=== PATIENT | female | born 1975 | race Caucasian/White ===

== ENCOUNTER 2021-04-30 12:50 | Emergency (ER) | payer SELFPAY ==
--- NOTE | ~2021-04-30 | XR_ITS ---
EXAMINATION: XR CHEST CLINICAL INFORMATION: Cough. COMPARISON: None TECHNIQUE: 2 views of the chest were obtained. FINDINGS: No significant abnormality is noted involving the heart, lungs, mediastinum, bony thorax or soft tissues. XR/XR chest 2V IMPRESSION: No acute cardiopulmonary process.
[2021-04-30 13:39] VITALS: BP 150/86; PULSE 93; RESP 18; TEMP 36.8; O2SAT 99; BMI 30.1
--- NOTE | 2021-04-30 15:46 | ED.GENADULT ---
HPI - General Adult General Chief complaint: General Medical Stated complaint: upper rt abd & back pain Time Seen by Provider: 04/30/21 15:22 Source: patient Mode of arrival: ambulatory Limitations: no limitations History of Present Illness HPI narrative: 46-year-old female presents emergency depart complaining of pain to her right lower chest. She states that 2 days ago she was coughing and felt pain to her right side her back and the pain has migrated to her right-sided ribs. She denies productive cough fever nausea vomiting or diarrhea. She denies any falls or injuries. She was worried because she has history of pancreatitis but denies any drinking she immediately and drink since this started. Related Data Previous Rx's Medication Instructions Recorded cyclobenzaprine 5 mg tablet 5 mg PO BEDTIME PRN #20 tab 04/30/21 prednisone 20 mg tablet 60 mg PO DAILY 5 Days #15 tab 04/30/21 Allergies Allergy/AdvReac Type Severity Reaction Status Date / Time SEASONAL ALLERGIES Allergy Unknown RUNNY NOSE Uncoded 03/30/20 17:30 Review of Systems Review of Systems: Review of systems: General: Patient denies any fever chills recent illness or falls Musculoskeletal: Right-sided rib and back pain or body aches or other injuries HEENT: denies headache, runny nose, ear pain Respiratory: denies shortness of breath, cough Cardiovascular: no chest pain or palpitations : denies dysuria, frequency Abdomen: no nausea vomiting denies abdominal pain Extremities: no swelling, no pain Skin: no diaphoresis Yes all other systems are reviewed and are negative PMFSH Past Medical History Medical History (Updated 04/30/21 @ 15:56 by Guerrero Pro DO) Pancreatitis Social History Social History Advance Directives: No Advance Directives Information Provided: Yes Physical Exam Vital Signs: Vital Signs: Last Vital Signs Temp 98.3 F 04/30/21 13:39 Pulse 93 04/30/21 13:39 Resp 18 04/30/21 13:39 BP 150/86 H 04/30/21 13:39 Pulse Ox 99 04/30/21 13:39 Body Mass Index 30.1 General: Well-appearing well-nourished in no signs of distress HEENT: Normocephalic atraumatic Neck: No signs of JVD, no masses no tenderness or lymphadenopathy Cardiovascular: Regular rate and rhythm pain is reproducible along right lower rib CS Respiratory: Clear to auscultation bilaterally Abdomen: Soft nontender no masses Extremities: Normal pedal pulses no signs of edema Skin: Dry warm no rashes Back: No tenderness full ROM Medical Decision Making MDM Narrative Medical decision making narrative: Patient looks well has musculoskeletal right sided pain. I will give toradol tylenol and send home on flexeril Discharge Plan Discharge Clinical Impression: Back strain, Rib pain on right side Instructions: Back Pain (ED), R.I.C.E. Treatment (ED) Additional Instructions: Please call to follow up with your doctor. Prescriptions: New prednisone 20 mg tablet 60 mg PO DAILY 5 Days Qty: 15 RF: 0 cyclobenzaprine 5 mg tablet 5 mg PO BEDTIME PRN (Reason: muscle spasm) Qty: 20 RF: 0
[2021-04-30] MEDS: Ketorolac Tromethamine 15 MG/ML VIAL IM (16:39)
[2021-04-30] MEDS: Acetaminophen 325 MG TABLET 650 MG PO (16:39)
== END 2021-04-30 16:43 | disposition home or self-care (01) ==
PROVIDERS: Emergency Provider Student in an Organized Health Care Education/Training Program
DX: M54.50 Low back pain, unspecified (principal); R10.11 Right upper quadrant pain; R07.81 Pleurodynia; Z79.899 Other long term (current) drug therapy
CPT/HCPCS: 71046; 96372; 99283; 99284; J1885

== ENCOUNTER 2022-03-28 13:53 | Inpatient (IN) | payer OTHER, MEDICAID, SELFPAY ==
--- NOTE | 2022-03-28 14:23 | ECG_ITS ---
Test Reason : MED CLEARANCE Blood Pressure : / mmHG Vent. Rate : 078 BPM Atrial Rate : 078 BPM P-R Int : 112 ms QRS Dur : 066 ms QT Int : 374 ms P-R-T Axes : 047 019 030 degrees QTc Int : 426 ms Normal sinus rhythm Normal ECG When compared with ECG of 12-SEP-2018 08:31, No significant change was found Referred By: Leola Hopkins Electronically Signed By:BARBIE SKY
--- NOTE | 2022-03-28 14:28 | ED.PSYCH ---
HPI - Psych General Chief Complaint: Psychiatric Symptoms Stated Complaint: ETOH Time Seen by Provider: 03/28/22 14:09 Source: patient and EMS Mode of arrival: EMS Limitations: other (intoxicated) History of Present Illness HPI Narrative: Patient comes to the emergency room via EMS on a Section 12. Patient states that today her boyfriend was going to take her to and intake for detox. Patient states that her boyfriend did not show up, patient started drinking alcohol, making suicidal statements. Patient denies drinking anything other than alcohol, no pills/tablets. We receive a phone call from [employer]. Seems that patient was making suicidal statements earlier today, texting family member angel and making SI statements on Facebook. Patient came on a Section 12 Related Data Previous Rx's Medication Instructions Recorded cyclobenzaprine 5 mg tablet 5 mg PO BEDTIME PRN muscle spasm 04/30/21 #20 tabs prednisone 20 mg tablet 60 mg PO DAILY Asthma 5 days #15 04/30/21 tabs Allergies Allergy/AdvReac Type Severity Reaction Status Date / Time SEASONAL ALLERGIES Allergy Unknown RUNNY NOSE Uncoded 03/30/20 17:30 Review of Systems Review of Systems: Constitutional : No Weight loss, No Fever, No Chills, No Night Sweats, No Fatigue, No Malaise ENT/Mouth : No Hearing loss, No Ear Pain, No Nasal Congestion, No Sinus Pain, No Hoarseness, No sore throat, No Rhinorrhea, No Swallowing Difficulty Eyes: No Eye Pain, No Swelling, No Redness, No Foreign Body, No Discharge, No Vision Changes Cardiovascular : No Chest Pain, No SOB, No Dyspnea on Exertion, No Orthopnea, No Edema, No Palpitations Respiratory : No Cough, No Sputum, No Wheezing, No Smoke Exposure, No Dyspnea Gastrointestinal : No Nausea, No Vomiting, No Diarrhea, No Constipation, No abdominal Pain, No Hematochezia, No Melena Genitourinary : no irregular bleeding, No Dysuria, No Urinary Frequency, No Hematuria, No Urinary Incontinence, No Urgency, No Flank Pain, No Urinary Flow Changes, No Hesitancy Musculoskeletal : No joint pain, No Myalgias, No Joint Swelling Skin : No Skin Lesions, No rash Neuro : No Weakness, No Numbness, No Paresthesias, No Loss of Consciousness, No Dizziness, No Headache Psych : Complaining of anxiety, depression, SI, no HI Heme/Lymph: No Bruising, No Bleeding,No Lymphadenopathy Endocrine : No Polyuria, No Polydipsia, No Temperature Intolerance [facility] Past Medical History Medical History (Updated 03/28/22 @ 16:01 by Leola Hopkins MD) Alcohol abuse Depression Pancreatitis Physical Exam Vital Signs: Vital Signs: Last Vital Signs Temp 98.1 F 03/28/22 14:30 Pulse 91 03/28/22 14:30 Resp 19 03/28/22 14:30 BP 114/73 03/28/22 14:30 Pulse Ox 96 03/28/22 14:30 O2 Del Method 03/28/22 14:30 BMI result Body Mass Index 28.3 Const: Other: Appearance: Alert. Oriented X3. Crying intoxicated Eyes: Pupils equal, round and reactive to light. ENT: Pharynx normal. Neck: Normal inspection. Neck supple. No lymph nodes noted. No crepitus CVS: Normal heart rate and rhythm. Pulses normal. Normal S1 and S2 Respiratory: No respiratory distress. Breath sounds normal. No Wheezing. No rales Abdomen: Soft and nontender. No rigidity. No distention. Skin: Skin warm and dry. Normal skin color. Normal skin turgor. Extremities: No lower extremity edema. No Lacerations. No Rash Neuro: Oriented X 3. No motor deficit. No sensory deficit. Moving all extremities. No slurred speech. CN 2 through 12 grossly intact Psych: calm, cooperative, intoxicated, crying Course Course Course Narrative: We'll obtain labs, patient is on a Section 12. Patient's anion gap is 21, likely secondary to alcoholic/acidosis Physician observations started at 16:00 [facility] already evaluated the patient in the community. Patient is on a Section 12 MDM - Psych Lab Data Result diagrams: 03/28/22 15:06 03/28/22 15:06 Labs: Lab Results 03/28/22 03/28/22 03/28/22 Range/Units 15:06 15:06 15:06 WBC 5.9 (4.8-10.8) X10*3/uL RBC 3.35 L (4.20-5.50) X10*6/uL Hgb 11.7 L (12.0-16.0) g/dl Hct 37.1 (37.0-47.0) % MCV 110.7 H (80.0-98.0) fL MCH 34.9 H (27.0-33.0) pg MCHC 31.5 (31.0-35.0) g/dl RDW 15.8 (11.0-16.0) % Plt Count 301 (160-400) X10*3/uL MPV 9.5 (9.4-12.3) fL Immature Gran % (Auto) 0.7 H (0.0-0.4) % Neut % (Auto) 50.8 (45-73) % Lymph % (Auto) 39.2 (20-40) % [place] % (Auto) 5.6 (2-11) % Eos % (Auto) 2.7 (0-4) % Baso % (Auto) 1.0 (0-2) % Lymph # (Auto) 2.3 (1.2-4.9) X10*3/uL [place] # (Auto) 0.3 (0.1-1.2) X10*3/uL Eos # (Auto) 0.2 (0.0-0.4) X10*3/uL Baso # (Auto) 0.1 (0.0-0.2) X10*3/uL Abs Immat Gran (auto) 0.04 H (0.00-0.03) X10*3/uL Absolute Neuts (auto) 3.0 (2.0-8.3) x10*3/uL Absolute Nucleated RBC 0.000 (0.0-0.012) X10*3/uL Nucleated RBC % (auto) 0.0 (0.0-0.2) /100WBC Sodium 143 (135-145) mmol/L Potassium 4.9 (3.3-5.1) mmol/L Chloride 111 H (96-108) mmol/L Carbon Dioxide 16 L (22-29) mmol/L Anion Gap 21 H (12-20) BUN 5 L (9-16) mg/dL Creatinine 0.66 (0.5-1.4) mg/dL Estim Creat Clear Calc 110.5 Estimated GFR > 60 Random Glucose 62 (60-115) mg/dL Calcium 8.4 (8.4-10.2) mg/dL Magnesium 2.1 (1.6-2.6) mg/dL Total Bilirubin 0.2 (0.0-1.0) mg/dL Direct Bilirubin 0.2 (0.0-0.5) mg/dL AST 118 H (5-31) U/L ALT 97 H (0-31) U/L Alkaline Phosphatase 126 H (39-117) U/L Troponin I High Sens < 3.5 (<3.5-17.0) ng/L Total Protein 6.0 L (6.5-8.0) g/dL Albumin 3.5 (3.5-5.0) g/dL Salicylates < 5.0 L (15-30) mg/dL Acetaminophen < 1 (<30) mcg/mL Ethyl Alcohol 233 mg/dL COVID-19 (LOGAN) (Negative) COVID-19 Clin Com 03/28/22 Range/Units 15:06 WBC (4.8-10.8) X10*3/uL RBC (4.20-5.50) X10*6/uL Hgb (12.0-16.0) g/dl Hct (37.0-47.0) % MCV (80.0-98.0) fL MCH (27.0-33.0) pg MCHC (31.0-35.0) g/dl RDW (11.0-16.0) % Plt Count (160-400) X10*3/uL MPV (9.4-12.3) fL Immature Gran % (Auto) (0.0-0.4) % Neut % (Auto) (45-73) % Lymph % (Auto) (20-40) % [place] % (Auto) (2-11) % Eos % (Auto) (0-4) % Baso % (Auto) (0-2) % Lymph # (Auto) (1.2-4.9) X10*3/uL [place] # (Auto) (0.1-1.2) X10*3/uL Eos # (Auto) (0.0-0.4) X10*3/uL Baso # (Auto) (0.0-0.2) X10*3/uL Abs Immat Gran (auto) (0.00-0.03) X10*3/uL Absolute Neuts (auto) (2.0-8.3) x10*3/uL Absolute Nucleated RBC (0.0-0.012) X10*3/uL Nucleated RBC % (auto) (0.0-0.2) /100WBC Sodium (135-145) mmol/L Potassium (3.3-5.1) mmol/L Chloride (96-108) mmol/L Carbon Dioxide (22-29) mmol/L Anion Gap (12-20) BUN (9-16) mg/dL Creatinine (0.5-1.4) mg/dL Estim Creat Clear Calc Estimated GFR Random Glucose (60-115) mg/dL Calcium (8.4-10.2) mg/dL Magnesium (1.6-2.6) mg/dL Total Bilirubin (0.0-1.0) mg/dL Direct Bilirubin (0.0-0.5) mg/dL AST (5-31) U/L ALT (0-31) U/L Alkaline Phosphatase (39-117) U/L Troponin I High Sens (<3.5-17.0) ng/L Total Protein (6.5-8.0) g/dL Albumin (3.5-5.0) g/dL Salicylates (15-30) mg/dL Acetaminophen (<30) mcg/mL Ethyl Alcohol mg/dL COVID-19 (LOGAN) Negative (Negative) COVID-19 Clin Com See Note Discharge Plan Discharge Clinical Impression: Suicidal ideation, Alcohol intoxication Patient Disposition: Still a Patient Prescriptions: No Action prednisone 20 mg tablet 60 mg PO DAILY 5 Days Qty: 15 0RF cyclobenzaprine 5 mg tablet 5 mg PO BEDTIME PRN (Reason: muscle spasm) Qty: 20 0RF
[2022-03-28 14:30] VITALS: BP 114/73; PULSE 91; RESP 19; TEMP 36.7; O2SAT 96; BMI 28.3
--- NOTE | 2022-03-28 14:49 | MHC.CARE ---
Pt was seen by [facility] in the community and is an FRANCIE follow up upon medical clearance.
[2022-03-28 15:13] LABS: MANUAL DIFF FLAG NO
[2022-03-28 15:15] LABS: Basophils Absolute Auto 0.1 X10*3/uL (0.0-0.2); Eosinophils Absolute Auto 0.2 X10*3/uL (0.0-0.4); Eosinophils Percent Auto 2.7 % (0-4); Hematocrit 37.1 % (37.0-47.0); Hemoglobin 11.7 g/dl (12.0-16.0); Imm Gran Abs Auto 0.04 X10*3/uL (0.00-0.03); Imm Gran Pct Auto 0.7 % (0.0-0.4); Lymphocytes Absolute Auto 2.3 X10*3/uL (1.2-4.9); Lymphocytes Percent Auto 39.2 % (20-40); Mean Corpuscular HGB Conc 31.5 g/dl (31.0-35.0); Mean Corpuscular Hemoglobin 34.9 pg (27.0-33.0); Mean Platelet Volume 9.5 fL (9.4-12.3); Monocytes Absolute Auto 0.3 X10*3/uL (0.1-1.2); Monocytes Percent Auto 5.6 % (2-11); Neutrophils Percent Auto 50.8 % (45-73); Platelet Count 301 X10*3/uL (160-400); Red Blood Count 3.35 X10*6/uL (4.20-5.50); Red Cell Distribution Width 15.8 % (11.0-16.0); SCAN SMEAR FLAG 1; White Blood Count 5.9 X10*3/uL (4.8-10.8)
[2022-03-28 15:21] LABS: Mean Corpuscular Volume 110.7 fL (80.0-98.0)
[2022-03-28 15:34] LABS: Alanine Aminotransferase 97 U/L (0-31); Albumin Level 3.5 g/dL (3.5-5.0); Alkaline Phosphatase 126 U/L (39-117); Anion Gap 21 (12-20); Aspartate Amino Transferase 118 U/L (5-31); Bilirubin Direct 0.2 mg/dL (0.0-0.5); Bilirubin Total 0.2 mg/dL (0.0-1.0); Blood Urea Nitrogen 5 mg/dL (9-16); Calcium 8.4 mg/dL (8.4-10.2); Carbon Dioxide 16 mmol/L (22-29); Chloride 111 mmol/L (96-108); Creatinine Clr Calc Pharmacy 110.5; Estimated Glomerular Filt Rate > 60; Ethanol 233 mg/dL; Glucose Random 62 mg/dL (60-115); Magnesium 2.1 mg/dL (1.6-2.6); Potassium 4.9 mmol/L (3.3-5.1); Sodium 143 mmol/L (135-145)
[2022-03-28 15:35] LABS: Troponin-I High Sensitivity < 3.5 ng/L (<3.5-17.0)
[2022-03-28 15:43] LABS: COVID-19 Test Negative (Negative)
[2022-03-28 15:45] LABS: Acetaminophen LAB < 1 mcg/mL (<30); Salicylate < 5.0 mg/dL (15-30)
--- NOTE | 2022-03-28 16:14 | PC.NURSE ---
patient was received in the pod about 1600
[2022-03-28 17:07] VITALS: BP 140/83; PULSE 95; RESP 20; TEMP 36.5; O2SAT 95
[2022-03-28] MEDS: LORazepam 1 MG TABLET 2 MG PO ×2 (17:13→21:29)
[2022-03-28 19:46] LABS: Appearance Urine Turbid; Color Urine Yellow; Glucose Urine UA Negative (Negative); Leukocyte Esterase Urine Negative (Negative); Nitrite Urine Negative (Negative); Urine Blood Negative (Negative); Urine Ketones Negative (Negative); Urine Protein Trace mg/dL (Neg-Trace)
[2022-03-28 19:47] LABS: UPreg QC Valid YES; Urine Pregnancy NEGATIVE (NEGATIVE)
[2022-03-28 20:05] LABS: Amphetamine Screen Urine Not Detected (Not Detect); Barbiturates, Urine POSITIVE (Not Detect); Benzodiazepines Screen Urine POSITIVE (Not Detect); Cannabinoid Screen Urine POSITIVE (Not Detect); Cocaine Screen Urine Not Detected (Not Detect); Fentanyl, urine POSITIVE (Not Detect); Opiate Screen Urine Not Detected (Not Detect); Phencyclidine Screen Urine Not Detected (Not Detect)
[2022-03-28] MEDS: Ibuprofen 600 MG TABLET PO (20:10)
[2022-03-28 21:31] VITALS: BP 110/87; PULSE 99; RESP 18; O2SAT 99
[2022-03-28 23:07] VITALS: BP 110/87; PULSE 73; RESP 16; TEMP 36.4; O2SAT 100
--- NOTE | 2022-03-29 06:02 | PC.NURSE ---
Patient did struggle to fall sleep but fell asleep at 0045 and slept through the night, Ativan 2 mg po administered for comfort at 2128 with positive effect, patient engaged well with [facility] clinician, disposition per [facility] is section 12 inpatient bed search, patient is currently not on any medication, asymptomatic of ETOH withdrawal, behavior non concerning, VSS, will continue to monitor.
--- NOTE | 2022-03-29 06:59 | PC.NURSE ---
patient appears to remain asleep at present respirations are even and unlabored patient appears in no distress
[2022-03-29 08:53] VITALS: BP 110/79; PULSE 86; RESP 16; TEMP 36.9; O2SAT 99
[2022-03-29] MEDS: Ondansetron ODT 4 MG TAB.RAPDIS TRANSLINGU (10:24)
[2022-03-29] MEDS: Loperamide HCl 2 MG CAPSULE 4 MG PO (10:24)
[2022-03-29] MEDS: hydrOXYzine HCL 50 MG TABLET PO ×2 (10:24→19:06)
[2022-03-29 11:53] VITALS: BP 122/90; PULSE 97; RESP 17; TEMP 36.9; O2SAT 92
[2022-03-29 13:56] VITALS: BP 138/68; PULSE 98; TEMP 36.6
[2022-03-29] MEDS: hydrOXYzine HCL 25 MG TABLET PO (13:56)
--- NOTE | 2022-03-29 15:15 | PC.ADMIT ---
Pt is a 47 year old female presenting to [facility] and brought to [facility]. Pt reports stop using alcohol 10 days ago but before was a daily drinker of 6+ drinks/day. Pt states the only other substance she uses is marijuana (occasionally). Pt reports drinking hand hand pattern marker before coming in, saying it was the stuff made during COVID, mostly grain alcohol. Pt denies SI/HI/VH. Pt reports having AH, but not to hurt herself. Pt lives with boyfriend and kids and they may be ending their relationship. Pt reports she needs to be sober for 90 days so she doesn't lose her kids. Pt is looking to get her medications figured out, and to find medications that actually help her. Pt very tearful during assessment, calm and cooperative. Reports high anxiety. Pt states she is safe and can come to staff for help if needed. Provider aware of admission and orders are placed. Start treatment and monitor for safety.
[2022-03-29 15:30] LABS: COVID-19 Test Negative (Negative); IDNOW Serial# 16C4AD1C
[2022-03-29 16:13] VITALS: BP 116/74; PULSE 86; RESP 16; TEMP 37; O2SAT 98
[2022-03-29] MEDS: Folic Acid 1 MG TABLET PO (16:39)
[2022-03-29] MEDS: Thiamine HCL 100 MG TABLET PO (16:39)
[2022-03-29] MEDS: LORazepam 1 MG TABLET 2 MG PO (16:39)
[2022-03-29] MEDS: Famotidine 20 MG TABLET PO (17:43)
[2022-03-29] MEDS: Acetaminophen 325 MG TABLET 650 MG PO (17:43)
[2022-03-29] MEDS: Omeprazole 20 MG CAPSULE.DR PO (17:43)
[2022-03-29 18:00] VITALS: BP 98/67; PULSE 84; TEMP 36.3
[2022-03-29] MEDS: traZODone HCL 50 MG TABLET PO (20:58)
--- NOTE | 2022-03-29 22:32 | PC.NURSE ---
Pt submitted a Three Day Notice on Friday03/29/2022 up on Friday04/03/2022.
[2022-03-30] MEDS: traZODone HCL 50 MG TABLET PO ×3 (03:10→23:28)
[2022-03-30] MEDS: Omeprazole 20 MG CAPSULE.DR PO (06:12)
[2022-03-30 08:15] VITALS: BP 116/64; PULSE 82; TEMP 36.4
[2022-03-30] MEDS: Famotidine 20 MG TABLET PO (08:24)
[2022-03-30] MEDS: Thiamine HCL 100 MG TABLET PO (08:24)
[2022-03-30] MEDS: LORazepam 1 MG TABLET PO ×2 (08:24→14:58)
[2022-03-30] MEDS: Folic Acid 1 MG TABLET PO (08:24)
[2022-03-30 08:36] LABS: Estimated Average Glucose 91 mg/dL; Hemoglobin A1c % 4.8 %
[2022-03-30 08:46] LABS: Alanine Aminotransferase 78 U/L (0-31); Albumin Level 3.6 g/dL (3.5-5.0); Alkaline Phosphatase 114 U/L (39-117); Anion Gap 16 (12-20); Aspartate Amino Transferase 74 U/L (5-31); Bilirubin Total 0.5 mg/dL (0.0-1.0); Blood Urea Nitrogen 8 mg/dL (9-16); Calcium 8.7 mg/dL (8.4-10.2); Carbon Dioxide 22 mmol/L (22-29); Chloride 106 mmol/L (96-108); Cholesterol 211 mg/dL; Creatinine Clr Calc Pharmacy 101.2; Estimated Glomerular Filt Rate > 60; Glucose Fasting 118 mg/dL (60-99); HDL Cholesterol 56 mg/dL; LDL Cholesterol Calculated 132 mg/dl; Potassium 4.9 mmol/L (3.3-5.1); Sodium 139 mmol/L (135-145); Total Protein 6.4 g/dL (6.5-8.0); Triglycerides 115 mg/dL
[2022-03-30 08:57] LABS: Thyroid Stimulating Hormone 2.43 uIU/mL (0.32-4.0)
[2022-03-30] MEDS: hydrOXYzine HCL 50 MG TABLET PO (10:13)
[2022-03-30] MEDS: Acetaminophen 325 MG TABLET 650 MG PO ×2 (10:13→21:30)
[2022-03-30 10:36] LABS: Folate 11.7 ng/mL (> or = 4.0); Vitamin B12 487 pg/mL (200-900)
--- NOTE | 2022-03-30 11:40 | HO.PSYADMNOT ---
HPI Date of Service: 03/30/22 Chief Complaint: SI Sources of Information: patient interviewed, chart reviewed and crisis/core team assessment reviewed HPI Subjective Notes: Conditional Voluntary and 3 Day Narrative: 47 year old , partnered for 9 years female. Lives with her fiance and son. Unemployed. Patient was brought to the hospital due to ethyl alcohol intoxication and posting suicidal statements on her social media. Patient says she has been struggling with alcohol use, she was drinking at least 10 shots a day. 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 She had a BAL 223 on presentation to the ED. She reports she has been drinking excessively after the pandemic. 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 She takes care of a 22 year old quadriplegic son which is overwhelming. She also says her boyfriend drinks. 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 She was recently at rehab and left because she says it wasn't helpful. She says she has been looking for a program to help with her Alcohol use but insurance and lack of beds were barriers. She reports feeling depressed, anxious, lost weight says about 40 lbs I lost my desire to eat. She has not been sleeping. Worthlessness and helplessness. Although she denies SI or making any statements on social media about wanting to kill herself, she says I can understand why people want to because of depression. Denies active SI. She has a court hearing coming up Friday for an alleged assault charge her partner filed against her. Past Psychiatric History: Depression. Was treated in the past with Prozac and Abilify. Prozac at high doses caused side effects and she stopped it. Denies inpatient treatment. Denies suicide attempts. Medical Evaluation Reviewed: Yes [facility] Medical History (Updated 03/30/22 @ 12:25 by Sagar Mas MD) Alcohol abuse Depression Pancreatitis Family History: Patient reports that her father was an alcoholic Social History: Born in [place] and raised in [place]. Graduated HS. 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 Has 3 children. . Now partnered for 9 years. Substance History: Alcohol. Denies other although UTOX was positive or fentanyl and barbiturates. Diagnostics Vital Signs (24Hr): Vital Signs - 24 hr 03/29/22 11:53 03/29/22 13:56 03/29/22 16:13 Temperature 98.5 F 97.9 F 98.6 F Pulse Rate 97 98 86 Respiratory Rate 17 16 Blood Pressure 122/90 H 138/68 116/74 Pulse Oximetry 92 98 Oxygen Delivery Method Room Air Room Air 03/29/22 18:00 03/30/22 08:15 Temperature 97.4 F 97.5 F Pulse Rate 84 82 Respiratory Rate Blood Pressure 98/67 116/64 Pulse Oximetry Oxygen Delivery Method BMI result Body Mass Index 28.3 Labs Results: 03/28/22 15:06 03/30/22 07:43 Labs: Laboratory Results - last 48 hr 03/28/22 03/28/22 03/28/22 15:06 15:06 15:06 WBC 5.9 RBC 3.35 L Hgb 11.7 L Hct 37.1 MCV 110.7 H MCH 34.9 H MCHC 31.5 RDW 15.8 Plt Count 301 MPV 9.5 Immature Gran % (Auto) 0.7 H Neut % (Auto) 50.8 Lymph % (Auto) 39.2 [place] % (Auto) 5.6 Eos % (Auto) 2.7 Baso % (Auto) 1.0 Lymph # (Auto) 2.3 [place] # (Auto) 0.3 Eos # (Auto) 0.2 Baso # (Auto) 0.1 Abs Immat Gran (auto) 0.04 H Absolute Neuts (auto) 3.0 Absolute Nucleated RBC 0.000 Nucleated RBC % (auto) 0.0 Sodium 143 Potassium 4.9 Chloride 111 H Carbon Dioxide 16 L Anion Gap 21 H BUN 5 L Creatinine 0.66 Estim Creat Clear Calc 110.5 Estimated GFR > 60 Random Glucose 62 Fasting Glucose Estimat Average Glucose Hemoglobin A1c % Calcium 8.4 Magnesium 2.1 Total Bilirubin 0.2 Direct Bilirubin 0.2 AST 118 H ALT 97 H Alkaline Phosphatase 126 H Troponin I High Sens < 3.5 Total Protein 6.0 L Albumin 3.5 Triglycerides Cholesterol LDL Cholesterol, Calc HDL Cholesterol Vitamin B12 Folate TSH Urine Color Urine Appearance Urine pH Ur Specific [place] Urine Protein Urine Glucose (UA) Urine Ketones Urine Blood Urine Nitrite Ur Leukocyte Esterase Urine Test Salicylates < 5.0 L Urine Opiates Screen Urine Fentanyl Screen Acetaminophen < 1 Ur Barbiturates Screen Ur Phencyclidine Scrn Ur Amphetamines Screen U Benzodiazepines Scrn Urine Cocaine Screen U Marijuana (THC) Screen Ethyl Alcohol 233 COVID-19 (LOGAN) COVID-19 enosiX Com 03/28/22 03/28/22 03/28/22 15:06 19:36 19:37 WBC RBC Hgb Hct MCV MCH MCHC RDW Plt Count MPV Immature Gran % (Auto) Neut % (Auto) Lymph % (Auto) [place] % (Auto) Eos % (Auto) Baso % (Auto) Lymph # (Auto) [place] # (Auto) Eos # (Auto) Baso # (Auto) Abs Immat Gran (auto) Absolute Neuts (auto) Absolute Nucleated RBC Nucleated RBC % (auto) Sodium Potassium Chloride Carbon Dioxide Anion Gap BUN Creatinine Estim Creat Clear Calc Estimated GFR Random Glucose Fasting Glucose Estimat Average Glucose Hemoglobin A1c % Calcium Magnesium Total Bilirubin Direct Bilirubin AST ALT Alkaline Phosphatase Troponin I High Sens Total Protein Albumin Triglycerides Cholesterol LDL Cholesterol, Calc HDL Cholesterol Vitamin B12 Folate TSH Urine Color Yellow Urine Appearance Turbid Urine pH 5.0 Ur Specific [place] 1.020 Urine Protein Trace Urine Glucose (UA) Negative Urine Ketones Negative Urine Blood Negative Urine Nitrite Negative Ur Leukocyte Esterase Negative Urine Test Salicylates Urine Opiates Screen Not Detected Urine Fentanyl Screen POSITIVE H Acetaminophen Ur Barbiturates Screen POSITIVE H Ur Phencyclidine Scrn Not Detected Ur Amphetamines Screen Not Detected U Benzodiazepines Scrn POSITIVE H Urine Cocaine Screen Not Detected U Marijuana (THC) Screen POSITIVE H Ethyl Alcohol COVID-19 (LOGAN) Negative COVID-19 enosiX Com See Note 03/28/22 03/29/22 03/30/22 19:37 15:05 07:43 WBC RBC Hgb Hct MCV MCH MCHC RDW Plt Count MPV Immature Gran % (Auto) Neut % (Auto) Lymph % (Auto) [place] % (Auto) Eos % (Auto) Baso % (Auto) Lymph # (Auto) [place] # (Auto) Eos # (Auto) Baso # (Auto) Abs Immat Gran (auto) Absolute Neuts (auto) Absolute Nucleated RBC Nucleated RBC % (auto) Sodium 139 Potassium 4.9 Chloride 106 Carbon Dioxide 22 Anion Gap 16 BUN 8 L D Creatinine 0.72 Estim Creat Clear Calc 101.2 Estimated GFR > 60 Random Glucose Fasting Glucose 118 H Estimat Average Glucose Hemoglobin A1c % Calcium 8.7 Magnesium Total Bilirubin 0.5 Direct Bilirubin AST 74 H ALT 78 H Alkaline Phosphatase 114 Troponin I High Sens Total Protein 6.4 L Albumin 3.6 Triglycerides 115 Cholesterol 211 LDL Cholesterol, Calc 132 HDL Cholesterol 56 Vitamin B12 Folate TSH 2.43 Urine Color Urine Appearance Urine pH Ur Specific [place] Urine Protein Urine Glucose (UA) Urine Ketones Urine Blood Urine Nitrite Ur Leukocyte Esterase Urine Test NEGATIVE Salicylates Urine Opiates Screen Urine Fentanyl Screen Acetaminophen Ur Barbiturates Screen Ur Phencyclidine Scrn Ur Amphetamines Screen U Benzodiazepines Scrn Urine Cocaine Screen U Marijuana (THC) Screen Ethyl Alcohol COVID-19 (LOGAN) Negative COVID-19 Clin Com See Note 03/30/22 03/30/22 07:43 07:43 WBC RBC Hgb Hct MCV MCH MCHC RDW Plt Count MPV Immature Gran % (Auto) Neut % (Auto) Lymph % (Auto) [place] % (Auto) Eos % (Auto) Baso % (Auto) Lymph # (Auto) [place] # (Auto) Eos # (Auto) Baso # (Auto) Abs Immat Gran (auto) Absolute Neuts (auto) Absolute Nucleated RBC Nucleated RBC % (auto) Sodium Potassium Chloride Carbon Dioxide Anion Gap BUN Creatinine Estim Creat Clear Calc Estimated GFR Random Glucose Fasting Glucose Estimat Average Glucose 91 Hemoglobin A1c % 4.8 Calcium Magnesium Total Bilirubin Direct Bilirubin AST ALT Alkaline Phosphatase Troponin I High Sens Total Protein Albumin Triglycerides Cholesterol LDL Cholesterol, Calc HDL Cholesterol Vitamin B12 487 Folate 11.7 TSH Urine Color Urine Appearance Urine pH Ur Specific [place] Urine Protein Urine Glucose (UA) Urine Ketones Urine Blood Urine Nitrite Ur Leukocyte Esterase Urine Test Salicylates Urine Opiates Screen Urine Fentanyl Screen Acetaminophen Ur Barbiturates Screen Ur Phencyclidine Scrn Ur Amphetamines Screen U Benzodiazepines Scrn Urine Cocaine Screen U Marijuana (THC) Screen Ethyl Alcohol COVID-19 ([facility]) COVID-19 Clin Com Meds/Allergies Meds Home Medications Medication Instructions Recorded Confirmed Type No Known Home Meds 03/28/22 03/28/22 History Allergies Allergies Allergy/AdvReac Type Severity Reaction Status Date / Time SEASONAL ALLERGIES Allergy Unknown RUNNY NOSE Uncoded 03/30/20 17:30 Mental Status Exam Mental Status Exam Patient Appearance: Appropriate Patient Orientation: Person, Place, Time and Situation Level of Consciousness: Awake Patient Behavior: Appropriate, Anxious, Good Eye Contact and Crying Mood Description: Depressed, Anxious, Labile and Sad Affect Description: Depressed and Labile Patient Cognition Impaired: No Ability to Follow Directions: Excellent Speech Pattern: Clear Memory Description: Intact Hallucinations: None Delusions: Not Present Thought Process: Intact and Goal Oriented Thought Content: positive for Goal Oriented Depressive Symptoms: Increased Anxiety, Insomnia, Difficulty Sleeping, Changes in Appetite, Significant Weight Loss, Feelings of Worthlessness, Feelings of Guilt and Thoughts of /Suicide Judgement: Fair Assessment & Plan Assessment & Plan (1) Alcohol intoxication: Status: Acute Code(s): F10.929 - Alcohol use, unspecified with intoxication, unspecified (2) Suicidal ideation: Status: Acute Code(s): R45.851 - Suicidal ideations (3) Depression, major, severe recurrence: Status: Acute Code(s): F33.2 - Major depressive disorder, recurrent severe without psychotic features (4) Alcohol dependence: Status: Acute Code(s): F10.20 - Alcohol dependence, uncomplicated Plan - Admit to [facility]. Signed a 3 day after signing a CV - CIWA and symptomatic PRN medications for withdrawals. - Start Naltrexone 50 mg HS. - Start Remeron 15 mg for depression. - Milieu therapy - Collaterals. - After care planning. Patient educated on: diagnosis, medication risk/benefits and substance abuse Reason for continued inpatient stay Substantial Risk for: harm to self, inability to function and rapid decompensation
[2022-03-30 16:45] VITALS: BP 106/59; PULSE 96; TEMP 36.9; O2SAT 99
[2022-03-30] MEDS: Mirtazapine 15 MG TABLET PO (20:28)
[2022-03-30] MEDS: Naltrexone HCl 50 MG TABLET PO (20:28)
[2022-03-30] MEDS: LORazepam 1 MG TABLET 2 MG PO (20:29)
[2022-03-31] MEDS: hydrOXYzine HCL 50 MG TABLET PO ×3 (03:12→17:21)
[2022-03-31 06:00] VITALS: BP 135/78; PULSE 81; RESP 18; TEMP 36.6; O2SAT 100
[2022-03-31] MEDS: Omeprazole 20 MG CAPSULE.DR PO (06:32)
[2022-03-31] MEDS: Folic Acid 1 MG TABLET PO (08:06)
[2022-03-31] MEDS: Thiamine HCL 100 MG TABLET PO (08:06)
[2022-03-31] MEDS: Famotidine 20 MG TABLET PO (08:06)
[2022-03-31] MEDS: LORazepam 1 MG TABLET PO ×3 (08:12→21:11)
[2022-03-31] MEDS: Acetaminophen 325 MG TABLET 650 MG PO (09:23)
[2022-03-31 12:06] VITALS: BP 152/99; PULSE 111
[2022-03-31] MEDS: cloNIDine HCL 0.1 MG TABLET PO ×2 (12:08→19:53)
--- NOTE | 2022-03-31 13:17 | HO.PSYCHPN ---
Subjective Subjective Date of Service: 03/31/22 Reason For Visit: SI Subjective Notes: 3 Day Interim History: patient was seen and discussed with the team. She is reporting severe anxiety. She says that is her main worry. She is seen in front of the telephone in the hallway and crying. When asked what is happening she reports I have relationship problems . She denies withdrawals. She says that hydroxyzine is only partially helpful for her anxiety. She had poor sleep last night because her roommate was restless. She agreed to a trial of clonidine as needed for anxiety Not responsive to hydroxyzine. Patient educated on the effects of antidepressants, specifically Remeron. Mental Status Exam Mental Status Exam Narrative: Patient Appearance: Appropriate Patient Orientation: Person, Place, Time and Situation Level of Consciousness: Awake Patient Behavior: Appropriate, Anxious, Good Eye Contact and Crying Mood Description: Depressed, Anxious, Labile and Sad Affect Description: Depressed and Labile Patient Cognition Impaired: No Ability to Follow Directions: Excellent Speech Pattern: Clear Memory Description: Intact Hallucinations: None Delusions: Not Present Thought Process: Intact and Goal Oriented Thought Content: positive for Goal Oriented Depressive Symptoms: Increased Anxiety, Insomnia, Difficulty Sleeping, Changes in Appetite, Significant Weight Loss, Feelings of Worthlessness, Feelings of Guilt and Thoughts of /Suicide Judgement: Fair Diagnostics Vital Signs (24Hr): Vital Signs - 24 hr 03/31/22 06:00 03/31/22 12:06 03/31/22 15:55 Temperature 97.8 F 97.9 F Pulse Rate 81 111 H 80 Respiratory Rate 18 Blood Pressure 135/78 152/99 H 128/75 Pulse Oximetry 100 99 Oxygen Delivery Method Room Air Room Air BMI result Body Mass Index 28.3 Labs Results: 03/28/22 15:06 03/30/22 07:43 Labs: Laboratory Results - last 48 hr 03/30/22 03/30/22 03/30/22 07:43 07:43 07:43 Sodium 139 Potassium 4.9 Chloride 106 Carbon Dioxide 22 Anion Gap 16 BUN 8 L D Creatinine 0.72 Estim Creat Clear Calc 101.2 Estimated GFR > 60 Fasting Glucose 118 H Estimat Average Glucose 91 Hemoglobin A1c % 4.8 Calcium 8.7 Total Bilirubin 0.5 AST 74 H ALT 78 H Alkaline Phosphatase 114 Total Protein 6.4 L Albumin 3.6 Triglycerides 115 Cholesterol 211 LDL Cholesterol, Calc 132 HDL Cholesterol 56 Vitamin B12 487 Folate 11.7 TSH 2.43 Medications Medications Current Medications Acetaminophen (Acetaminophen 325 Mg Tablet) 650 mg PO Q6H PRN PRN Reason: Headache/Pain Mild Scale (1-3) Last Admin: 03/31/22 09:23 Dose: 650 mg Al Hydroxide/Mg Hydroxide (Magnesium Hydrox/Alum Hydrox 30 Ml Oral.Susp) 30 ml PO Q6H PRN PRN Reason: Heartburn/Nausea Clonidine HCl (Clonidine Hcl 0.1 Mg Tablet) 0.1 mg PO TID PRN; Protocol PRN Reason: anxiety not responding to Vistaril Last Admin: 03/31/22 12:08 Dose: 0.1 mg Famotidine (Famotidine 20 Mg Tablet) 20 mg PO DAILY [facility] Last Admin: 03/31/22 08:06 Dose: 20 mg Folic Acid (Folic Acid 1 Mg Tablet) 1 mg PO DAILY [facility] Last Admin: 03/31/22 08:06 Dose: 1 mg Hydroxyzine HCl (Hydroxyzine Hcl 50 Mg Tablet) 50 mg PO Q6H PRN PRN Reason: Anxiety Last Admin: 03/31/22 17:21 Dose: 50 mg Lorazepam (Lorazepam 1 Mg Tablet) 1 mg PO Q4H PRN PRN Reason: ciwa 7-12 Last Admin: 03/31/22 14:22 Dose: 1 mg Lorazepam (Lorazepam 1 Mg Tablet) 2 mg PO Q4H PRN PRN Reason: ciwa 13-17 Last Admin: 03/30/22 20:29 Dose: 2 mg Magnesium Hydroxide (Milk Of Magnesia 30 Ml Oral.Susp) 30 ml PO DAILY PRN PRN Reason: Constipation Mirtazapine (Mirtazapine 15 Mg Tablet) 15 mg PO BEDTIME [facility] Last Admin: 03/30/22 20:28 Dose: 15 mg Naltrexone HCl (Naltrexone Hcl 50 Mg Tablet) 50 mg PO BEDTIME [facility] Last Admin: 03/30/22 20:28 Dose: 50 mg Omeprazole (Omeprazole 20 Mg Capsule.Dr) 20 mg PO DAILY@0630 [facility] Last Admin: 03/31/22 06:32 Dose: 20 mg Ondansetron HCl (Ondansetron Odt 8 Mg Tab.Rapdis) 8 mg TRANSLINGU Q8H PRN PRN Reason: Nausea Thiamine HCl (Thiamine Hcl 100 Mg Tablet) 100 mg PO DAILY [facility] Last Admin: 03/31/22 08:06 Dose: 100 mg Trazodone HCl (Trazodone Hcl 50 Mg Tablet) 50 mg PO BEDTIME PRN PRN Reason: Insomnia Last Admin: 03/30/22 23:28 Dose: 50 mg Allergies Allergies Allergy/AdvReac Type Severity Reaction Status Date / Time SEASONAL ALLERGIES Allergy Unknown RUNNY NOSE Uncoded 03/30/20 17:30 Assessment & Plan Assessment & Plan (1) Alcohol intoxication: Status: Acute Code(s): F10.929 - Alcohol use, unspecified with intoxication, unspecified (2) Suicidal ideation: Status: Acute Code(s): R45.851 - Suicidal ideations (3) Depression, major, severe recurrence: Status: Acute Code(s): F33.2 - Major depressive disorder, recurrent severe without psychotic features (4) Alcohol dependence: Status: Acute Code(s): F10.20 - Alcohol dependence, uncomplicated Plan - Admit to M5. Signed a 3 day after signing a CV - CIWA and symptomatic PRN medications for withdrawals. - Start Naltrexone 50 mg HS. - Start Remeron 15 mg for depression. - Milieu therapy - Collaterals. - After care planning. I spent minutes with the patient and/or on the patient floor today, greater than?50% of which was spent counseling/coordinating care. Reason for contiued inpatient stay Substantial Risk for: harm to self, inability to function and rapid decompensation
[2022-03-31 15:55] VITALS: BP 128/75; PULSE 80; TEMP 36.6; O2SAT 99
[2022-03-31] MEDS: traZODone HCL 50 MG TABLET PO (19:53)
[2022-03-31] MEDS: Naltrexone HCl 50 MG TABLET PO (19:53)
[2022-03-31] MEDS: Mirtazapine 15 MG TABLET PO (19:53)
[2022-04-01] MEDS: traZODone HCL 50 MG TABLET PO ×2 (01:02→20:31)
[2022-04-01] MEDS: hydrOXYzine HCL 50 MG TABLET PO ×4 (01:05→20:41)
[2022-04-01 06:00] VITALS: BP 132/82; PULSE 86; RESP 18; TEMP 36.4; O2SAT 99
[2022-04-01] MEDS: Acetaminophen 325 MG TABLET 650 MG PO ×2 (08:09→14:07)
[2022-04-01] MEDS: Thiamine HCL 100 MG TABLET PO (08:10)
[2022-04-01] MEDS: Famotidine 20 MG TABLET PO ×3 (08:10→20:32)
[2022-04-01] MEDS: LORazepam 1 MG TABLET PO ×3 (08:10→20:42)
[2022-04-01] MEDS: Folic Acid 1 MG TABLET PO (08:10)
[2022-04-01] MEDS: cloNIDine HCL 0.1 MG TABLET PO (10:35)
[2022-04-01] MEDS: Gabapentin 300 MG CAPSULE PO ×3 (11:34→20:32)
--- NOTE | 2022-04-01 16:45 | P.PNPSI_ITS ---
Subjective Subjective Date of Service: 04/01/22 Reason For Visit: SI Interim History: Patient reports she is feeling much better. She denies any SI at all and says that she has kids would never hurt herself. She feels clonidine is also helpful and has lowered anxiety. Patient is optimistic about staying sober and says her boyfriend has cleaned the house out from all alcohol. Regulatory Affairs Coordinator discussed vulnerability to relapse however patient minimize this and felt she would be okay. Patient has signed a 3 day notice and says she is feeling ready to go home. Patient appreciated gabapentin being started and understood it was to be soon discontinued. Mental Status Exam Mental Status Exam Narrative: Patient Appearance: Appropriate Patient Orientation: Person, Place, Time and Situation Level of Consciousness: Awake Patient Behavior: calm, cooperative, friendly Mood Description: better Affect Description: Depressed and Labile Patient Cognition Impaired: No Ability to Follow Directions: Excellent Speech Pattern: Clear Memory Description: Intact Hallucinations: None Delusions: Not Present Thought Process: Intact and Goal Oriented Thought Content: discharge, staying sober; denies SI or HI Depressive Symptoms: resolved Judgement: Fair Diagnostics Vital Signs (24Hr): Vital Signs - 24 hr 04/01/22 06:00 Temperature 97.6 F Pulse Rate 86 Respiratory Rate 18 Blood Pressure 132/82 Pulse Oximetry 99 BMI result Body Mass Index 28.3 Labs Results: 03/28/22 15:06 03/30/22 07:43 Medications Medications Current Medications Acetaminophen (Acetaminophen 325 Mg Tablet) 650 mg PO Q6H PRN PRN Reason: Headache/Pain Mild Scale (1-3) Last Admin: 04/01/22 14:07 Dose: 650 mg Al Hydroxide/Mg Hydroxide (Magnesium Hydrox/Alum Hydrox 30 Ml Oral.Susp) 30 ml PO Q6H PRN PRN Reason: Heartburn/Nausea Clonidine HCl (Clonidine Hcl 0.1 Mg Tablet) 0.1 mg PO TID PRN; Protocol PRN Reason: anxiety not responding to Vistaril Last Admin: 04/01/22 10:35 Dose: 0.1 mg Famotidine (Famotidine 20 Mg Tablet) 20 mg PO BID [facility] Folic Acid (Folic Acid 1 Mg Tablet) 1 mg PO DAILY [facility] Last Admin: 04/01/22 08:10 Dose: 1 mg Gabapentin (Gabapentin 300 Mg Capsule) 300 mg PO TID [facility] Last Admin: 04/01/22 14:08 Dose: 300 mg Hydroxyzine HCl (Hydroxyzine Hcl 50 Mg Tablet) 50 mg PO Q6H PRN PRN Reason: Anxiety Last Admin: 04/01/22 14:08 Dose: 50 mg Lorazepam (Lorazepam 1 Mg Tablet) 1 mg PO Q4H PRN PRN Reason: ciwa 7-12 Last Admin: 04/01/22 16:31 Dose: 1 mg Lorazepam (Lorazepam 1 Mg Tablet) 2 mg PO Q4H PRN PRN Reason: ciwa 13-17 Last Admin: 03/30/22 20:29 Dose: 2 mg Magnesium Hydroxide (Milk Of Magnesia 30 Ml Oral.Susp) 30 ml PO DAILY PRN PRN Reason: Constipation Mirtazapine (Mirtazapine 15 Mg Tablet) 15 mg PO BEDTIME [facility] Last Admin: 03/31/22 19:53 Dose: 15 mg Naltrexone HCl (Naltrexone Hcl 50 Mg Tablet) 50 mg PO BEDTIME [facility] Last Admin: 03/31/22 19:53 Dose: 50 mg Omeprazole (Omeprazole 20 Mg Capsule.Dr) 20 mg PO DAILY@0630 [facility] Last Admin: 04/01/22 06:58 Dose: Not Given Ondansetron HCl (Ondansetron Odt 8 Mg Tab.Rapdis) 8 mg TRANSLINGU Q8H PRN PRN Reason: Nausea Thiamine HCl (Thiamine Hcl 100 Mg Tablet) 100 mg PO DAILY [facility] Last Admin: 04/01/22 08:10 Dose: 100 mg Trazodone HCl (Trazodone Hcl 50 Mg Tablet) 50 mg PO BEDTIME PRN PRN Reason: Insomnia Last Admin: 04/01/22 01:02 Dose: 50 mg Allergies Allergies Allergy/AdvReac Type Severity Reaction Status Date / Time SEASONAL ALLERGIES Allergy Unknown RUNNY NOSE Uncoded 03/30/20 17:30 Assessment & Plan Assessment & Plan (1) Alcohol intoxication: Status: Resolved Code(s): F10.929 - Alcohol use, unspecified with intoxication, unspecified (2) Suicidal ideation: Status: Resolved Code(s): R45.851 - Suicidal ideations (3) Depression, major, severe recurrence: Status: Resolved Code(s): F33.2 - Major depressive disorder, recurrent severe without psychotic features (4) Alcohol dependence: Status: Resolved Code(s): F10.20 - Alcohol dependence, uncomplicated Plan HPI: 47 year old , partnered for 9 years female. Lives with her fiance and son. Unemployed. Patient was brought to the hospital due to ethyl alcohol intoxication and posting suicidal statements on her social media. Patient says she has been struggling with alcohol use, she was drinking at least 10 shots a day. 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 She had a BAL 223 on presentation to the ED. She reports she has been drinking excessively after the pandemic. 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 She takes care of a 22 year old quadriplegic son which is overwhelming. She also says her boyfriend drinks. 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 She was recently at rehab and left because she says it wasn't helpful. She says she has been looking for a program to help with her Alcohol use but insurance and lack of beds were barriers.? She reports feeling depressed, anxious, lost weight says about 40 lbs I lost my desire to eat. She has not been sleeping. Worthlessness and helplessness. Although she denies SI or making any statements on social media about wanting to kill herself, she says I can understand why people want to because of depression. ? Denies active SI. She has a court hearing coming up Friday for an alleged assault charge her partner filed against her. Hospital course Patient was admitted; she complained of depression and anxiety however want to discharge and signed a 3 day notice immediately. Patient was started on CIWA. She was also started on naltrexone for helping curb alcohol cravings. Patient was started on mirtazapine as well for depression. Although patient still had some emotional lability, Today she reports that depression had cleared up and she continues to deny any SI at all. She reiterated her above statement saying that she can see why people thought perhaps she was suicidal, however remains adamant this was not the case saying she has kid that whenever hurt herself. Patient reports that her anxiety was under better control with clonidine and felt Remeron was helpful as well. Patient was calm, no longer emotional, fri endly and cooperative. She wanted discharge and her 3 day notice was coming due. Regulatory Affairs Coordinator discussed how she still had withdrawal symptoms however patient said she hardly felt them and still wanted discharge. Patient did not rise to the level of involuntary commitment and was not in imminent risk for harm to self or others. -scenario writer started her on some gabapentin and also diazepam both to be tapered. Signed a 3 day after signing a CV - CIWA and symptomatic PRN medications for withdrawals. - Start Naltrexone 50 mg HS. - Start Remeron 15 mg for depression. - Milieu therapy - Collaterals. - After care planning. I spent minutes with the patient and/or on the patient floor today, greater than?50% of which was spent counseling/coordinating care. Patient educated on: diagnosis, medication risk/benefits, substance abuse and medical condition Informed Consent: understands Reason for contiued inpatient stay Substantial Risk for: stable for discharge
[2022-04-01 17:15] VITALS: BP 119/75; PULSE 81; TEMP 36.6
[2022-04-01] MEDS: Mirtazapine 15 MG TABLET PO (20:31)
[2022-04-01] MEDS: Naltrexone HCl 50 MG TABLET PO (20:31)
[2022-04-02] MEDS: traZODone HCL 50 MG TABLET PO (00:17)
[2022-04-02 06:00] VITALS: BP 115/57; PULSE 82; TEMP 36.1
[2022-04-02] MEDS: Omeprazole 20 MG CAPSULE.DR PO (06:26)
[2022-04-02] MEDS: LORazepam 1 MG TABLET 2 MG PO (07:14)
[2022-04-02] MEDS: Acetaminophen 325 MG TABLET 650 MG PO ×2 (07:14→13:52)
[2022-04-02] MEDS: Gabapentin 300 MG CAPSULE PO ×2 (08:12→13:52)
[2022-04-02] MEDS: Folic Acid 1 MG TABLET PO (08:12)
[2022-04-02] MEDS: Thiamine HCL 100 MG TABLET PO (08:12)
[2022-04-02] MEDS: Famotidine 20 MG TABLET PO (08:12)
[2022-04-02] MEDS: cloNIDine HCL 0.1 MG TABLET PO (08:25)
[2022-04-02 09:12] LABS: Alanine Aminotransferase 90 U/L (0-31); Albumin Level 3.9 g/dL (3.5-5.0); Alkaline Phosphatase 96 U/L (39-117); Aspartate Amino Transferase 80 U/L (5-31); Bilirubin Direct < 0.2 mg/dL (0.0-0.5); Bilirubin Total 0.3 mg/dL (0.0-1.0); Total Protein 6.5 g/dL (6.5-8.0)
--- NOTE | 2022-04-02 10:05 | PM.PSYDC ---
DS: Providers Provider Date of Service: 04/02/22 Date of admission: 03/29/22 12:09 Date of discharge: 04/02/22 Primary care physician: None Physician Admitting clinician: Gisell Coates Attending physician on discharge: Bj Garcia DS: Diagnosis Discharge Diagnosis (1) Alcohol intoxication: Status: Resolved (2) Suicidal ideation: Status: Resolved (3) Depression, major, severe recurrence: Status: Resolved (4) Alcohol dependence: Status: Resolved DS: Medications Discharge Medications Home Medications: Home Medications Medication Instructions Recorded Confirmed No Known Home Meds 03/28/22 03/28/22 Mental Status Exam Mental Status Exam Narrative: Patient Appearance: Appropriate Patient Orientation: Person, Place, Time and Situation Level of Consciousness: Awake Patient Behavior: calm, cooperative, friendly Mood Description: better Affect Description: Depressed and Labile Patient Cognition Impaired: No Ability to Follow Directions: good Speech Pattern: Clear Memory Description: Intact Hallucinations: None Delusions: Not Present Thought Process: Intact and Goal Oriented Thought Content: discharge, staying sober; denies SI or HI Depressive Symptoms: resolved Judgement: Fair Data Data Completed and Pending Completed studies during hospitalization [Text1]: 03/28/22 03/28/22 03/28/22 15:06 15:06 15:06 WBC 5.9 RBC 3.35 L Hgb 11.7 L Hct 37.1 MCV 110.7 H MCH 34.9 H MCHC 31.5 RDW 15.8 Plt Count 301 MPV 9.5 Immature Gran % (Auto) 0.7 H Neut % (Auto) 50.8 Lymph % (Auto) 39.2 [place] % (Auto) 5.6 Eos % (Auto) 2.7 Baso % (Auto) 1.0 Lymph # (Auto) 2.3 [place] # (Auto) 0.3 Eos # (Auto) 0.2 Baso # (Auto) 0.1 Abs Immat Gran (auto) 0.04 H Absolute Neuts (auto) 3.0 Absolute Nucleated RBC 0.000 Nucleated RBC % (auto) 0.0 Sodium 143 Potassium 4.9 Chloride 111 H Carbon Dioxide 16 L Anion Gap 21 H BUN 5 L Creatinine 0.66 Estim Creat Clear Calc 110.5 Estimated GFR > 60 Random Glucose 62 Fasting Glucose Estimat Average Glucose Hemoglobin A1c % Calcium 8.4 Magnesium 2.1 Total Bilirubin 0.2 Direct Bilirubin 0.2 AST 118 H ALT 97 H Alkaline Phosphatase 126 H Troponin I High Sens < 3.5 Total Protein 6.0 L Albumin 3.5 Triglycerides Cholesterol LDL Cholesterol, Calc HDL Cholesterol Vitamin B12 Folate TSH Urine Color Urine Appearance Urine pH Ur Specific [place] Urine Protein Urine Glucose (UA) Urine Ketones Urine Blood Urine Nitrite Ur Leukocyte Esterase Urine Test Salicylates < 5.0 L Urine Opiates Screen Urine Fentanyl Screen Acetaminophen < 1 Ur Barbiturates Screen Ur Phencyclidine Scrn Ur Amphetamines Screen U Benzodiazepines Scrn Urine Cocaine Screen U Marijuana (THC) Screen Ethyl Alcohol 233 COVID-19 (LOGAN) COVID-19 J[facility]aster 03/28/22 03/28/22 03/28/22 15:06 19:36 19:37 WBC RBC Hgb Hct MCV MCH MCHC RDW Plt Count MPV Immature Gran % (Auto) Neut % (Auto) Lymph % (Auto) [place] % (Auto) Eos % (Auto) Baso % (Auto) Lymph # (Auto) [place] # (Auto) Eos # (Auto) Baso # (Auto) Abs Immat Gran (auto) Absolute Neuts (auto) Absolute Nucleated RBC Nucleated RBC % (auto) Sodium Potassium Chloride Carbon Dioxide Anion Gap BUN Creatinine Estim Creat Clear Calc Estimated GFR Random Glucose Fasting Glucose Estimat Average Glucose Hemoglobin A1c % Calcium Magnesium Total Bilirubin Direct Bilirubin AST ALT Alkaline Phosphatase Troponin I High Sens Total Protein Albumin Triglycerides Cholesterol LDL Cholesterol, Calc HDL Cholesterol Vitamin B12 Folate TSH Urine Color Yellow Urine Appearance Turbid Urine pH 5.0 Ur Specific [place] 1.020 Urine Protein Trace Urine Glucose (UA) Negative Urine Ketones Negative Urine Blood Negative Urine Nitrite Negative Ur Leukocyte Esterase Negative Urine Test Salicylates Urine Opiates Screen Not Detected Urine Fentanyl Screen POSITIVE H Acetaminophen Ur Barbiturates Screen POSITIVE H Ur Phencyclidine Scrn Not Detected Ur Amphetamines Screen Not Detected U Benzodiazepines Scrn POSITIVE H Urine Cocaine Screen Not Detected U Marijuana (THC) Screen POSITIVE H Ethyl Alcohol COVID-19 (LOGAN) Negative COVID-19 Jellycoaster See Note 03/28/22 03/29/22 03/30/22 19:37 15:05 07:43 WBC RBC Hgb Hct MCV MCH MCHC RDW Plt Count MPV Immature Gran % (Auto) Neut % (Auto) Lymph % (Auto) [place] % (Auto) Eos % (Auto) Baso % (Auto) Lymph # (Auto) [place] # (Auto) Eos # (Auto) Baso # (Auto) Abs Immat Gran (auto) Absolute Neuts (auto) Absolute Nucleated RBC Nucleated RBC % (auto) Sodium 139 Potassium 4.9 Chloride 106 Carbon Dioxide 22 Anion Gap 16 BUN 8 L D Creatinine 0.72 Estim Creat Clear Calc 101.2 Estimated GFR > 60 Random Glucose Fasting Glucose 118 H Estimat Average Glucose Hemoglobin A1c % Calcium 8.7 Magnesium Total Bilirubin 0.5 Direct Bilirubin AST 74 H ALT 78 H Alkaline Phosphatase 114 Troponin I High Sens Total Protein 6.4 L Albumin 3.6 Triglycerides 115 Cholesterol 211 LDL Cholesterol, Calc 132 HDL Cholesterol 56 Vitamin B12 Folate TSH 2.43 Urine Color Urine Appearance Urine pH Ur Specific [place] Urine Protein Urine Glucose (UA) Urine Ketones Urine Blood Urine Nitrite Ur Leukocyte Esterase Urine Test NEGATIVE Salicylates Urine Opiates Screen Urine Fentanyl Screen Acetaminophen Ur Barbiturates Screen Ur Phencyclidine Scrn Ur Amphetamines Screen U Benzodiazepines Scrn Urine Cocaine Screen U Marijuana (THC) Screen Ethyl Alcohol COVID-19 (LOGAN) Negative COVID-19 Clin Com See Note 03/30/22 03/30/22 04/02/22 07:43 07:43 08:00 WBC RBC Hgb Hct MCV MCH MCHC RDW Plt Count MPV Immature Gran % (Auto) Neut % (Auto) Lymph % (Auto) [place] % (Auto) Eos % (Auto) Baso % (Auto) Lymph # (Auto) [place] # (Auto) Eos # (Auto) Baso # (Auto) Abs Immat Gran (auto) Absolute Neuts (auto) Absolute Nucleated RBC Nucleated RBC % (auto) Sodium Potassium Chloride Carbon Dioxide Anion Gap BUN Creatinine Estim Creat Clear Calc Estimated GFR Random Glucose Fasting Glucose Estimat Average Glucose 91 Hemoglobin A1c % 4.8 Calcium Magnesium Total Bilirubin 0.3 Direct Bilirubin < 0.2 AST 80 H ALT 90 H Alkaline Phosphatase 96 Troponin I High Sens Total Protein 6.5 Albumin 3.9 Triglycerides Cholesterol LDL Cholesterol, Calc HDL Cholesterol Vitamin B12 487 Folate 11.7 TSH Urine Color Urine Appearance Urine pH Ur Specific [place] Urine Protein Urine Glucose (UA) Urine Ketones Urine Blood Urine Nitrite Ur Leukocyte Esterase Urine Test Salicylates Urine Opiates Screen Urine Fentanyl Screen Acetaminophen Ur Barbiturates Screen Ur Phencyclidine Scrn Ur Amphetamines Screen U Benzodiazepines Scrn Urine Cocaine Screen U Marijuana (THC) Screen Ethyl Alcohol COVID-19 (LOGAN) COVID-19 Clin Com DS: Summary Hospital Course Hospital Course: HPI: 47 year old , partnered for 9 years female. Lives with her fiance and son. Unemployed. Patient was brought to the hospital due to ethyl alcohol intoxication and posting suicidal statements on her social media. Patient says she has been struggling with alcohol use, she was drinking at least 10 shots a day. 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 She had a BAL 223 on presentation to the ED. She reports she has been drinking excessively after the pandemic. 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 She takes care of a 22 year old quadriplegic son which is overwhelming. She also says her boyfriend drinks. 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 She was recently at rehab and left because she says it wasn't helpful. She says she has been looking for a program to help with her Alcohol use but insurance and lack of beds were barriers.? She reports feeling depressed, anxious, lost weight says about 40 lbs I lost my desire to eat. She has not been sleeping. Worthlessness and helplessness. Although she denies SI or making any statements on social media about wanting to kill herself, she says I can understand why people want to because of depression. ? Denies active SI. She has a court hearing coming up Friday for an alleged assault charge her partner filed against her. Hospital course Patient was admitted; she complained of depression and anxiety however want to discharge and signed a 3 day notice immediately.? Patient was started on CIWA.? She was also started on naltrexone for helping curb alcohol cravings.? Patient was started on mirtazapine as well for depression.? Although patient still had some emotional lability, Today she reports that depression had cleared up and she continues to deny any SI at all.? She reiterated her above statement saying that she can see why people thought perhaps she was suicidal, however remains adamant this was not the case saying she has kid that whenever hurt herself.? Patient reports that her anxiety was under better control with clonidine and felt Remeron was helpful as well.? Patient was calm, no longer emotional, friendly and cooperative.? She wanted discharge and her 3 day notice was coming due.? Scale Manager discussed how she still had withdrawal symptoms however patient said she hardly felt them and still wanted discharge.? Patient did not rise to the level of involuntary commitment and was not in imminent risk for harm to self or others. -keno writer / runner started her on some gabapentin and also diazepam both to be tapered. 04/02 patient continued to be in good mood, with much brighter affect and wanting discharge. She understood the risks of alcohol withdrawal and said she would return to the emergency room if symptoms persisted or worsened. Scale Manager agreed to send her off with a couple days of diazepam and gabapentin to help mitigate symptoms. Patient remained without any SI and eager to return home. While patient remains vulnerable to decompensation and relapse, this is a chronic issue that will not change with a longer stay on the inpatient unit. Her 3 day notice was due. She was not in imminent risk for harm to self or others and her request for discharge honored. 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 [Other] - 1 Week Vivitrol: [facility] [Other] - 04/05/22 10:45 am (Enter through Main Entrance, take elevator to fourth floor, down hallway on your right) Psych Prescriber: Cherelle Arambula ([facility]) [Other] - 04/11/22 10:20 am (Telehealth- Be mindful to check your emails as they will often send instructions for appointment. ) Psych Prescriber: Cherelle Arambula ([facility]) [Other] - 05/09/22 11:40 am (Telehealth ) Therapist: Felicia Lujan ([facility]) [Other] - 04/08/22 3:00 pm (In person at the office ) Discharge Medications: New clonidine HCl 0.1 mg tablet 0.1 mg PO TID PRN (Reason: anxiety) 30 Days Qty: 90 1RF mirtazapine 15 mg tablet 15 mg PO BEDTIME 30 Days Qty: 30 1RF hydroxyzine HCl 50 mg tablet 50 mg PO TID PRN (Reason: anxiety) 30 Days Qty: 90 1RF naltrexone 50 mg tablet 50 mg PO DAILY 30 Days Qty: 30 0RF trazodone 50 mg tablet 50 mg PO BEDTIME PRN (Reason: insomnia) 30 Days Qty: 30 1RF famotidine 20 mg tablet 20 mg PO BID 30 Days Qty: 60 0RF omeprazole 20 mg capsule,delayed release(DR/EC) 20 mg PO DAILY 30 Days Qty: 30 0RF folic acid 1 mg tablet 1 mg PO DAILY 30 Days Qty: 30 0RF thiamine HCl (vitamin B1) 100 mg tablet 100 mg PO DAILY 30 Days Qty: 30 0RF diazepam 2 mg tablet 2 mg PO BID 3 Days Qty: 6 0RF gabapentin 100 mg capsule 100 mg PO TID 3 Days Qty: 9 0RF Discharge Orders: Discharge Order (Routine); Ordered 04/02/22 Ordered By: Bj Garcia Diet: Regular diet Activity on Discharge: As tolerated Stand Alone Forms: Patient Portal Discharge page, Community Support Other Ambulatory Orders: Liver Panel (Routine) Timeframe: [id number] Facility: [facility] - Location: Laboratory Ordered By: Bj Garcia Care Plan Goals: Maintain mood and safe behaviors Take medications as prescribed Continue to pursue sobriety Practice coping skills Continue with outpatient providers and reach out to them as needed Health Concerns: Mood stability and behaviors Sobriety Plan of Treatment: Follow up with your PCP, psychiatric provider and other outpatient providers regarding above concerns Take medications as prescribed Assessment: Risk assessment at time of discharge:? Patient was interviewed prior to discharge and found to be fully oriented and without any SI or HI. Patient has insight and demonstrates good judgment in terms of wanting to pursue treatment. Patient is not in imminent risk of harm to self or others and has a safety plan that includes presenting to the closest ER or calling 911 if feeling unsafe.? Patient has been observed closely by nursing and unit staff throughout admission; patient has not engaged in any behaviors that suggest dangerousness to self or others and has demonstrated appropriate behaviors and impulse control Discharge Date/Time: 04/02/22 14:25
[2022-04-02] MEDS: diazePAM 2 MG TABLET PO (11:10)
[2022-04-02] MEDS: hydrOXYzine HCL 50 MG TABLET PO (11:11)
[2022-04-02] MEDS: Naloxone HCl Nasal TAKE HOME 4 MG SPRAY NOSTRILALT (13:17)
[2022-04-02] MEDS: LORazepam 1 MG TABLET PO (13:52)
== END 2022-04-02 14:25 | disposition home or self-care (01) | DRG 751 ==
LOC: HO.ED 03-29 06:59 → HO.PM5 03-29 12:30
PROVIDERS: Emergency Medicine; Social Worker; Admitting Provider Psychiatry & Neurology Psychiatry; Emergency Provider Emergency Medicine Emergency Medical Services; Visit Provider Psychiatry & Neurology Psychiatry
DX: F33.2 Major depressive disorder, recurrent severe without psychotic features (principal); R45.851 Suicidal ideations; F10.229 Alcohol dependence with intoxication, unspecified; F17.210 Nicotine dependence, cigarettes, uncomplicated; Y90.7 Blood alcohol level of 200-239 mg/100 ml; Z71.6 Tobacco abuse counseling; Z79.899 Other long term (current) drug therapy
CPT/HCPCS: 36415; 80048; 80053; 80061; 80076; 80143; 80179; 80307; 81003; 81025; 82077; 82607; 82746; 83036; 83735; 84443; 84484; 85025; 87635; 93005; 99285

== ENCOUNTER 2022-09-18 15:47 | Emergency (ER) | payer OTHER, SELFPAY ==
--- NOTE | ~2022-09-18 | CT_ITS ---
EXAMINATION: CT HEAD WITHOUT CONTRAST CLINICAL INFORMATION: Multiple falls. EtOH. COMPARISON: None available. TECHNIQUE: Contiguous axial imaging was performed from the skull base to vertex without intravenous administration of contrast. This CT examination was performed using dose optimization techniques as appropriate, variously including the following: *Automated exposure control. *Adjustment of mA and/or kV according to patient size (this includes techniques or standardized protocols for targeted exams where dose is matched to indication/reason for exam; i.e. extremities or head). *Use of iterative reconstruction technique. DLP: 1141 mGy-cm FINDINGS: Moderately motion degraded exam. There is no demonstrated acute intracranial hemorrhage or edematous territorial infarction. Otero-white matter differentiation is preserved. Mildly prominent perivascular spaces) caudal to the lentiform nuclei bilaterally. Few scattered foci of hypoattenuation in the periventricular and deep white matter most commonly seen with mild microangiopathy. Proportional prominence of the ventricles and sulcal spaces without evidence of obstructive hydrocephalus. No abnormal mass effect or midline shift. No extra-axial fluid collections. No acute soft tissue or osseous abnormalities. Mild mucosal thickening of the paranasal sinuses. Mild leftward nasal septal deviation with spurring. The mastoid air cells and middle ear cavities are clear. CT/CT head/brain wo IV con IMPRESSION: 1. No demonstrated evidence of acute intracranial hemorrhage or edematous territorial infarction. 2. Mild mild nonspecific white matter changes and generalized cerebral volume loss.
--- NOTE | 2022-09-18 15:54 | ED.PSYCH ---
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 (31.0-35.0) g/dl RDW 19.1 H (11.0-16.0) % Plt Count 216 D (160-400) X10*3/uL MPV 9.2 L (9.4-12.3) fL Immature Gran % (Auto) 0.2 (0.0-0.4) % Neut % (Auto) 40.0 L (45-73) % Lymph % (Auto) 49.4 H (20-40) % Williamson % (Auto) 7.6 (2-11) % Eos % (Auto) 1.7 (0-4) % Baso % (Auto) 1.1 (0-2) % Lymph # (Auto) 2.3 (1.2-4.9) X10*3/uL Williamson # (Auto) 0.4 (0.1-1.2) X10*3/uL Eos # (Auto) 0.1 (0.0-0.4) X10*3/uL Baso # (Auto) 0.1 (0.0-0.2) X10*3/uL Abs Immat Gran (auto) 0.01 (0.00-0.03) X10*3/uL Absolute Neuts (auto) 1.9 L (2.0-8.3) x10*3/uL Absolute Nucleated RBC 0.020 H (0.0-0.012) X10*3/uL Nucleated RBC % (auto) 0.4 H (0.0-0.2) /100WBC Sodium 142 (135-145) mmol/L Potassium 2.8 L D (3.3-5.1) mmol/L Chloride 98 (96-108) mmol/L Carbon Dioxide 30 H (22-29) mmol/L Anion Gap 17 (12-20) BUN 7 L (9-16) mg/dL Creatinine 0.73 (0.5-1.4) mg/dL Estim Creat Clear Calc 84.0 Estimated GFR > 60 Random Glucose 156 H (60-115) mg/dL Calcium 8.4 (8.4-10.2) mg/dL Magnesium 1.7 (1.6-2.6) mg/dL Total Bilirubin 0.5 (0.0-1.0) mg/dL AST 96 H (5-31) U/L ALT 27 (0-31) U/L Alkaline Phosphatase 139 H (39-117) U/L Total Protein 5.8 L (6.5-8.0) g/dL Albumin 3.5 (3.5-5.0) g/dL Lipase 18 (8-78) U/L Urine Color Urine Appearance Urine pH (5.0-9.0) Ur Specific [place] (1.005-1.025) Urine Protein (Neg-Trace) mg/dL Urine Glucose (UA) (Negative) mg/dL Urine Ketones (Negative) mg/dL Urine Blood (Negative) Urine Nitrite (Negative) Ur Leukocyte Esterase (Negative) Urine RBC (0-2) /HPF Urine WBC (0-5) /HPF Ur Squamous Epith Cells (0-2) /HPF Urine Bacteria (None Seen) Hyaline Casts (0-2) /LPF Urine Opiates Screen (Not Detect) Urine Fentanyl Screen (Not Detect) Ur Barbiturates Screen (Not Detect) Ur Phencyclidine Scrn (Not Detect) Ur Amphetamines Screen (Not Detect) U Benzodiazepines Scrn (Not Detect) Urine Cocaine Screen (Not Detect) U Marijuana (THC) Screen (Not Detect) Ethyl Alcohol 408 H* mg/dL COVID-19 ([facility]) Negative (Negative) COVID-19 Clin Com See Note 09/18/22 09/18/22 09/18/22 Range/Units 19:46 19:46 19:58 WBC (4.8-10.8) X10*3/uL RBC (4.20-5.50) X10*6/uL Hgb (12.0-16.0) g/dl Hct (37.0-47.0) % MCV (80.0-98.0) fL MCH (27.0-33.0) pg MCHC (31.0-35.0) g/dl RDW (11.0-16.0) % Plt Count (160-400) X10*3/uL MPV (9.4-12.3) fL Immature Gran % (Auto) (0.0-0.4) % Neut % (Auto) (45-73) % Lymph % (Auto) (20-40) % Williamson % (Auto) (2-11) % Eos % (Auto) (0-4) % Baso % (Auto) (0-2) % Lymph # (Auto) (1.2-4.9) X10*3/uL Williamson # (Auto) (0.1-1.2) X10*3/uL Eos # (Auto) (0.0-0.4) X10*3/uL Baso # (Auto) (0.0-0.2) X10*3/uL Abs Immat Gran (auto) (0.00-0.03) X10*3/uL Absolute Neuts (auto) (2.0-8.3) x10*3/uL Absolute Nucleated RBC (0.0-0.012) X10*3/uL Nucleated RBC % (auto) (0.0-0.2) /100WBC Sodium 146 H (135-145) mmol/L Potassium 3.0 L (3.3-5.1) mmol/L Chloride 101 (96-108) mmol/L Carbon Dioxide 29 (22-29) mmol/L Anion Gap 19 (12-20) BUN 6 L (9-16) mg/dL Creatinine 0.64 (0.5-1.4) mg/dL Estim Creat Clear Calc 95.8 Estimated GFR > 60 Random Glucose 93 (60-115) mg/dL Calcium 8.4 (8.4-10.2) mg/dL Magnesium (1.6-2.6) mg/dL Total Bilirubin (0.0-1.0) mg/dL AST (5-31) U/L ALT (0-31) U/L Alkaline Phosphatase (39-117) U/L Total Protein (6.5-8.0) g/dL Albumin (3.5-5.0) g/dL Lipase (8-78) U/L Urine Color Yellow Urine Appearance Clear Urine pH 7.0 (5.0-9.0) Ur Specific [place] <= 1.005 (1.005-1.025) Urine Protein Negative (Neg-Trace) mg/dL Urine Glucose (UA) Negative (Negative) mg/dL Urine Ketones Negative (Negative) mg/dL Urine Blood Negative (Negative) Urine Nitrite Positive H (Negative) Ur Leukocyte Esterase Small (1+) H (Negative) Urine RBC 0-2 (0-2) /HPF Urine WBC 6-10 H (0-5) /HPF Ur Squamous Epith Cells 0-2 (0-2) /HPF Urine Bacteria 4+ (None Seen) Hyaline Casts 0-2 (0-2) /LPF Urine Opiates Screen Not Detected (Not Detect) Urine Fentanyl Screen Not Detected (Not Detect) Ur Barbiturates Screen Not Detected (Not Detect) Ur Phencyclidine Scrn Not Detected (Not Detect) Ur Amphetamines Screen Not Detected (Not Detect) U Benzodiazepines Scrn Not Detected (Not Detect) Urine Cocaine Screen Not Detected (Not Detect) U Marijuana (THC) Screen POSITIVE H (Not Detect) Ethyl Alcohol mg/dL COVID-19 (LOGAN) (Negative) COVID-19 Clin Com <NGUYỄN Fuentes - Last Filed: 09/18/22 21:58> Independent Interpretation I performed an independent interpretation of an: EKG <NGUYỄN Mcdonnell - Last Filed: 09/18/22 17:56> Radiology Impression Discussion of test interpretation with radiology: I have reviewed the radiologist's reading. <NGUYỄN Mcdonnell - Last Filed: 09/18/22 17:56> Independent Historian Clinical information obtained from an independent historian. History obtained from or confirmed by: Other <NGUYỄN Mcdonnell - Last Filed: 09/18/22 17:56> External Record Review External record reviewed: Office record, Outpatient record, Prior outpatient labs, Prior outpatient radiology and Primary care record <NGUYỄN Mcdonnell - Last Filed: 09/18/22 17:56> Discharge Plan Discharge Clinical Impression: Alcoholic intoxication, Depressed, Multiple falls, UTI (urinary tract infection) <NGUYỄN Herring - Last Filed: 09/18/22 16:00> Patient Disposition: Still a Patient <NGUYỄN Herring Last Filed: 09/18/22 16:00> Prescriptions: New cefuroxime axetil 250 mg tablet 250 mg PO BID 7 Days Qty: 14 0RF No Action clonidine HCl 0.1 mg tablet 0.1 mg PO TID PRN (Reason: anxiety) 30 Days Qty: 90 1RF mirtazapine 15 mg tablet 15 mg PO BEDTIME 30 Days Qty: 30 1RF hydroxyzine HCl 50 mg tablet 50 mg PO TID PRN (Reason: anxiety) 30 Days Qty: 90 1RF naltrexone 50 mg tablet 50 mg PO DAILY 30 Days Qty: 30 0RF trazodone 50 mg tablet 50 mg PO BEDTIME PRN (Reason: insomnia) 30 Days Qty: 30 1RF famotidine 20 mg tablet 20 mg PO BID 30 Days Qty: 60 0RF omeprazole 20 mg capsule,delayed release(DR/EC) 20 mg PO DAILY 30 Days Qty: 30 0RF folic acid 1 mg tablet 1 mg PO DAILY 30 Days Qty: 30 0RF thiamine HCl (vitamin B1) 100 mg tablet 100 mg PO DAILY 30 Days Qty: 30 0RF diazepam 2 mg tablet 2 mg PO BID 3 Days Qty: 6 0RF gabapentin 100 mg capsule 100 mg PO TID 3 Days Qty: 9 0RF <NGUYỄN Herring - Last Filed: 09/18/22 16:00> Interventions: [place]-Suicide Risk Severity Scale Last Done: 09/18/22 17:42 <NGUYỄN Herring - Last Filed: 09/18/22 16:00>
[2022-09-18 15:55] VITALS: BP 140/97; PULSE 132; RESP 16; TEMP 36.7; O2SAT 94; BMI 24.7
--- NOTE | 2022-09-18 16:02 | ECG_ITS ---
Test Reason : TACKYCARDIA Blood Pressure : / mmHG Vent. Rate : 118 BPM Atrial Rate : 118 BPM P-R Int : 120 ms QRS Dur : 068 ms QT Int : 430 ms P-R-T Axes : 025 020 033 degrees QTc Int : 602 ms Sinus tachycardia Nonspecific ST and T wave abnormality Abnormal ECG When compared with ECG of 28-MAR-2022 16:20, Vent. rate has increased BY 40 BPM Nonspecific T wave abnormality now evident in Anterior leads Referred By: Cristiana Walton Electronically Signed By:BRIAN LORENZO
[2022-09-18 16:49] LABS: IDNOW Serial# 16C4AD1C
[2022-09-18 16:50] LABS: COVID-19 Test Negative (Negative)
[2022-09-18 17:03] VITALS: BP 119/84; PULSE 106; RESP 16; TEMP 36.8; O2SAT 98
[2022-09-18 17:36] LABS: MANUAL DIFF FLAG NO
[2022-09-18] MEDS: Lactated Ringers 1,000 ML 999 ML IV (17:37)
[2022-09-18 17:38] LABS: Basophils Absolute Auto 0.1 X10*3/uL (0.0-0.2); Basophils Percent Auto 1.1 % (0-2); Eosinophils Absolute Auto 0.1 X10*3/uL (0.0-0.4); Eosinophils Percent Auto 1.7 % (0-4); Hematocrit 37.2 % (37.0-47.0); Hemoglobin 12.6 g/dl (12.0-16.0); Imm Gran Abs Auto 0.01 X10*3/uL (0.00-0.03); Imm Gran Pct Auto 0.2 % (0.0-0.4); Lymphocytes Absolute Auto 2.3 X10*3/uL (1.2-4.9); Lymphocytes Percent Auto 49.4 % (20-40); Mean Corpuscular HGB Conc 33.9 g/dl (31.0-35.0); Mean Corpuscular Hemoglobin 33.8 pg (27.0-33.0); Mean Corpuscular Volume 99.7 fL (80.0-98.0); Mean Platelet Volume 9.2 fL (9.4-12.3); Monocytes Absolute Auto 0.4 X10*3/uL (0.1-1.2); Monocytes Percent Auto 7.6 % (2-11); NRBC Pct Auto 0.4 /100WBC (0.0-0.2); Neutrophils Absolute Auto 1.9 x10*3/uL (2.0-8.3); Platelet Count 216 X10*3/uL (160-400); Red Blood Count 3.73 X10*6/uL (4.20-5.50); Red Cell Distribution Width 19.1 % (11.0-16.0); White Blood Count 4.7 X10*3/uL (4.8-10.8)
--- NOTE | 2022-09-18 17:44 | PC.NURSE ---
Pt appears intoxicated, changed into hospital attire. Requesting detox and reporting increased depression. IV established, labs drawn and sent. Resting quietly in bed
[2022-09-18 18:00] VITALS: BP 94/64; PULSE 101; RESP 16; TEMP 36.8; O2SAT 98
[2022-09-18 18:04] LABS: Alanine Aminotransferase 27 U/L (0-31); Albumin Level 3.5 g/dL (3.5-5.0); Alkaline Phosphatase 139 U/L (39-117); Anion Gap 17 (12-20); Aspartate Amino Transferase 96 U/L (5-31); Bilirubin Total 0.5 mg/dL (0.0-1.0); Blood Urea Nitrogen 7 mg/dL (9-16); Calcium 8.4 mg/dL (8.4-10.2); Carbon Dioxide 30 mmol/L (22-29); Chloride 98 mmol/L (96-108); Estimated Glomerular Filt Rate > 60; Ethanol 408 mg/dL; Glucose Random 156 mg/dL (60-115); Lipase 18 U/L (8-78); Magnesium 1.7 mg/dL (1.6-2.6); Potassium 2.8 mmol/L (3.3-5.1); Sodium 142 mmol/L (135-145); Total Protein 5.8 g/dL (6.5-8.0)
--- NOTE | 2022-09-18 18:08 | PC.NURSE ---
Recovery team meeting with patient for ?detox
[2022-09-18 20:09] LABS: Appearance Urine Clear; Color Urine Yellow; Glucose Urine UA Negative (Negative); Leukocyte Esterase Urine Small (1+) (Negative); Nitrite Urine Positive (Negative); Specific Gravity - Urine <= 1.005 (1.005-1.025); UMIC TRIGGER UACC YES; Urine Blood Negative (Negative); Urine Ketones Negative (Negative); Urine Protein Negative (Neg-Trace)
[2022-09-18 20:14] LABS: Bacteria Urine 4+ (None Seen); Hyaline Casts Urine 0-2 /LPF (0-2); RBC Urine 0-2 /HPF (0-2); Squamous Epithelial Cell Urine 0-2 /HPF (0-2); UACC Culture Trigger YES
[2022-09-18 20:33] VITALS: BP 127/81; PULSE 71; RESP 17; TEMP 36.7; O2SAT 96
[2022-09-18 20:37] LABS: Anion Gap 19 (12-20); Blood Urea Nitrogen 6 mg/dL (9-16); Calcium 8.4 mg/dL (8.4-10.2); Carbon Dioxide 29 mmol/L (22-29); Chloride 101 mmol/L (96-108); Creatinine Clr Calc Pharmacy 95.8; Estimated Glomerular Filt Rate > 60; Glucose Random 93 mg/dL (60-115); Sodium 146 mmol/L (135-145)
[2022-09-18 20:39] LABS: Amphetamine Screen Urine Not Detected (Not Detect); Barbiturates, Urine Not Detected (Not Detect); Benzodiazepines Screen Urine Not Detected (Not Detect); Cannabinoid Screen Urine POSITIVE (Not Detect); Cocaine Screen Urine Not Detected (Not Detect); Fentanyl, urine Not Detected (Not Detect); Opiate Screen Urine Not Detected (Not Detect); Phencyclidine Screen Urine Not Detected (Not Detect)
[2022-09-18] MEDS: LORazepam 1 MG TABLET PO (21:07)
[2022-09-18] MEDS: Potassium Chloride Packet 20 MEQ PACKET 40 MEQ PO (21:07)
[2022-09-18] MEDS: Potassium Chloride/H20 10 MEQ/100 ML PIGGYBACK 100 MEQ IV ×2 (22:19→23:32)
[2022-09-19] VITALS: RESP 16
[2022-09-19 01:26] LABS: Anion Gap 16 (12-20); Blood Urea Nitrogen 6 mg/dL (9-16); Calcium 7.8 mg/dL (8.4-10.2); Carbon Dioxide 29 mmol/L (22-29); Chloride 100 mmol/L (96-108); Creatinine Clr Calc Pharmacy 102.2; Estimated Glomerular Filt Rate > 60; Glucose Random 97 mg/dL (60-115); Potassium 3.4 mmol/L (3.3-5.1); Sodium 142 mmol/L (135-145)
--- NOTE | 2022-09-19 02:48 | PC.NURSE ---
Pt reports non-med compliance, preliminary med rec completed.
[2022-09-19] MEDS: LORazepam 1 MG TABLET PO ×4 (03:45→13:36)
--- NOTE | 2022-09-19 05:38 | PC.NURSE ---
Contact made to CARE team: per Xander, Pt will be evaluated s/p 6am
[2022-09-19 06:05] VITALS: BP 133/95; PULSE 103; RESP 16; TEMP 36.7; O2SAT 95
--- NOTE | 2022-09-19 06:46 | PC.NURSE ---
belongings in locker 7
[2022-09-19 07:18] VITALS: BP 131/96; PULSE 95; RESP 18; TEMP 37.1; O2SAT 99
--- NOTE | 2022-09-19 07:26 | MHC.CM.ED ---
Received case management consult overnight. Patient is waiting for CARE team assessment. CM consult deferred at this time. CM will need to be re-consulted if needed.
--- NOTE | 2022-09-19 08:49 | PC.NURSE ---
CARE team Antoine at bedside to eval pt
--- NOTE | 2022-09-19 10:14 | PC.NURSE ---
Em, bogger operator at bedside
--- NOTE | 2022-09-19 10:17 | MHC.RECOVRN ---
Addendum entered by Mckenzie Melendez RN 09/19/22 12:51: Patient has 2:30pm Admission at [facility], patients boyfriend to bring belongings here to [facility] for 1:30pm and provide transport for patient to facility. Patient given admission time, [facility] address and contact. Provider, CELESTE aware. Addendum entered by Mckenzie Melendez RN 09/19/22 11:48: Patient currently doing phone intake for [facility]. Original Note: This teletypewriter installer met w/ patient, patient sitting up in bed. Patient reports drinking daily 10-15 nips vodka for past 6 months. 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 Patient reports past 6 months significant increase, drinking all day/night, starting at 3am. 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 Patient reports in past few months, went to detox at [facility] in [place]. Patient requesting detox. Patient reports has recovery supports, friend who is supportive of recovery. Patient currently reporting mild nausea, anxiety, pins and needles, mild GARCIA, moderate tremor hands and tongue noted by this teletypewriter installer. Provider aware. This teletypewriter installer starting detox bedsearch at local facilities per patient request.
[2022-09-19 11:19] VITALS: BP 100/54; PULSE 98; RESP 17; TEMP 36.6; O2SAT 95
== END 2022-09-19 13:43 | disposition home or self-care (01) ==
PROVIDERS: Physician Assistant; Emergency Provider Student in an Organized Health Care Education/Training Program
DX: F10.220 Alcohol dependence with intoxication, uncomplicated (principal); Y90.8 Blood alcohol level of 240 mg/100 ml or more; F32.A Depression, unspecified; F41.9 Anxiety disorder, unspecified; N39.0 Urinary tract infection, site not specified; B96.20 Unspecified Escherichia coli [E. coli] as the cause of diseases classified elsewhere; R29.6 Repeated falls; Z91.81 History of falling; Z20.822 Contact with and (suspected) exposure to COVID-19; F19.10 Other psychoactive substance abuse, uncomplicated; Z79.899 Other long term (current) drug therapy
CPT/HCPCS: 36415; 70450; 80048; 80053; 80307; 81001; 82077; 83690; 83735; 85025; 87086; 87088; 87186; 87635; 93005; 96361; 96365; 96366; 99285; S9485